=== PATIENT | male | born 1950 ===

== ENCOUNTER 2016-11-22 12:00 | Inpatient (IN) | payer MEDICARE, OTHER ==
[~2016-11-22] VITALS: Ht 177.8 cm; Wt 89.7 kg
--- NOTE | ~2016-11-22 | CON ---
PATIENT'S NAME: RAZIA HUERTAS [facility] AGE: 66 Y [address] ROOM: [place] [address] LOCATION: [facility] ADMIT DATE: 11/22/2016 Consultation DISCHARGE DATE: FAMILY PHYSICIAN: Jessica Pimentel MD ATTENDING PHYSICIAN: KRYSTINA STILES DATE OF CONSULTATION: 11/22/2016 REASON FOR CONSULT: Right foot ulcer. HISTORY OF PRESENT ILLNESS: This is a 66-year-old male currently admitted to [facility]. He was transferred from an outside facility for ongoing concern of a right foot ulcer and sepsis. The patient is also being seen by General Surgery for hydropic gallbladder and elevated liver function tests. The patient tells us that he has had this wound to his right foot since July. He reports that most recently he has had debridement by a acid recovery operator in [place] between November 17 and November 22. He was hospitalized in [place] during this time. The bone is known to be exposed, but history suggests a healthy-appearing and firm bone. His cultures have grown Enterococcus faecalis. The patient was transferred after having a history of fevers and leukocytosis. The patient is on vancomycin and gentamicin. The patient is a known longstanding insulin- dependent diabetic since the early . He denies any chewing tobacco or cigarette use. He does have a history of cigar use, but none currently. He denies any peripheral vascular history. He denies any venous insufficiency or history of DVT. The patient with known chronic kidney disease. He currently denies any chills. His temperature on admission is 99. He denies any chest pain, shortness of breath, dizziness, or palpitations. He denies any nausea, vomiting, diarrhea, abdominal pain, or constipation. PAST MEDICAL HISTORY: 1. Insulin-dependent type 2 diabetes. 2. Neuropathy. 3. Chronic kidney disease, stage 3. 4. Hyperlipidemia. 5. Gastroesophageal reflux disease. 6. Iron-deficiency anemia. 7. Essential hypertension. PAST SURGICAL HISTORY: Right foot sesamoid bone resection. FAMILY HISTORY: Brother with gallbladder removed and bypass surgery and extensive family PATIENT'S NAME: RAZIA HUERTAS [facility] AGE: 66 Y [address] ROOM: [place] [address] LOCATION: [facility] ADMIT DATE: 11/22/2016 Consultation DISCHARGE DATE: FAMILY PHYSICIAN: Jessica Pimentel MD ATTENDING PHYSICIAN: KRYSTINA STILES history of diabetes and coronary artery disease. SOCIAL HISTORY: The patient has history of cigar use. He denies any alcohol or illicit drug use. CURRENT MEDICATIONS: See medication reconciliation. ALLERGIES: NO KNOWN DRUG ALLERGIES. REVIEW OF SYSTEMS: All systems have been reviewed and negative aside from pertinent positives addressed in history of presenting illness. PHYSICAL EXAMINATION: VITAL SIGNS: Temperature is 99, heart rate 83, respiratory rate 16, and blood pressure 157/84. GENERAL: The patient is alert and oriented x3 in no acute distress. He is a good historian. SKIN: Overall, warm, pink, and dry. The patient with a full thickness open wound to the right foot medial plantar surface with bone exposed. The tissue appears pink and healthy with no areas of necrosis. The bone appears firm with no softness or breakdown. Wound with bloody drainage and no evidence of purulence. Some mild swelling and erythema to the surrounding foot. No odor or significant cellulitis. HEENT: Head: Normocephalic and atraumatic. Ears: Without drainage. Eyes: Sclerae white. Conjunctivae pink. Extraocular movements intact. Nose: Without drainage. Throat: Oral mucosa pink and moist. No exudate or erythema. NECK: Without adenopathy. No evidence of JVD. No carotid bruit. RESPIRATORY: Lung sounds are clear to auscultation bilaterally. Even and nonlabored. CARDIOVASCULAR: Regular rate and rhythm. No murmur or extra sounds. GASTROINTESTINAL: Bowel sounds active x4. Soft and nontender. No organomegaly. EXTREMITIES: The patient with bounding bilateral palpable pulses throughout radial, femoral, dorsalis pedis, and posterior tibialis. No cyanosis. Active range of motion throughout. No varicose veins. NEUROLOGICAL: No focal deficits. Equal strength 5/5 bilaterally. Decreased sensation to bilateral feet. DIAGNOSTICS: Outside wound cultures with Enterococcus faecalis. Outside MRI suggesting PATIENT'S NAME: RAZIA HUERTAS [facility] AGE: 66 Y [address] ROOM: [address] [address] LOCATION: [facility] ADMIT DATE: 11/22/2016 Consultation DISCHARGE DATE: FAMILY PHYSICIAN: Jessica Pimentel MD ATTENDING PHYSICIAN: KRYSTINA STILES possible osteomyelitis. Hematology: White blood cell count 11.1, hemoglobin 9.2, hematocrit 27.7, and platelets 499. Procalcitonin is 0.09. CRP 160. Hemoglobin A1c is 7.6. IMPRESSION AND PLAN: Diabetic foot ulcer. The patient with adequate pulses throughout. There is no significant evidence suggesting any vascular compromise. At this point in time, we would recommend primary doctor to consider an Orthopedic consultation for surgical intervention at the foot. The patient appears to have enough blood flow to heal any distal surgical intervention including debridement or amputation. Due to the exposure of bone, we believe the patient would benefit most by a form of distal amputation of the foot. The patient continues on Zosyn per hospitalist plan. May follow up with Vascular Surgery as needed or with any questions or concerns. Thanking for your consultation for allowing us to participate in the care of this patient. HUSEYIN ISAAC APRN FOR ASIA GUAMAN MD TO/garol /[id number] d: 11/23/16 0134 t: 11/30/16 1156, CONSULTATION REPORT
--- NOTE | ~2016-11-22 | DS ---
PATIENT'S NAME: RAZIA HUERTAS [facility] AGE: 66 Y [address] ROOM: [address] [place], [place] [address] LOCATION: [facility] ADMIT DATE: 11/22/2016 Discharge Summary DISCHARGE DATE: 11/28/2016 FAMILY PHYSICIAN: Jessica Pimentel MD ATTENDING PHYSICIAN: Jacinto Baker FINAL DIAGNOSES: 1. Right chronic foot wound with gangrene, status post right metatarsal amputation with gastrocnemius recession procedure. 2. Diabetes mellitus type 2, insulin using. 3. Diabetic neuropathy. 4. Essential hypertension. 5. Stage III chronic kidney disease. 6. Dyslipidemia. 7. Iron deficiency anemia. 8. Hydropic gallbladder. PROCEDURE: The patient had a transmetatarsal amputation of one through three on a gastrocnemius recession procedure and then also put PICC line. HISTORY OF PRESENT ILLNESS: For details of admission, please see the history and physical dictated by Dr. Jacinto Baker. In short, the patient was transferred from [place] where he presented with a surface ulcer. Tissue cultures that had been obtained there had grown enterococcus faecalis. He was on IV vancomycin and gentamicin. An MRI was done and it was suggestive of osteomyelitis. The patient was transferred here for further evaluation. LABORATORY DATA: On admission sodium 138, most prior to discharge 140. Potassium on admission 3.8, most prior to discharge 3.7. BUN on admission 18, discharge 14. Creatinine on admission was 1.1, got as high as 1.3 on the 8th, most prior to discharge 1.1. Hemoglobin A1c was 7.6, alkaline phosphatase on admission was 293, AST 23, ALT 44. C-reactive protein on admission was 11.7. White blood cell count on admission was 11.1, hemoglobin 9.2, hematocrit 27.7, and platelet count 499. Sedimentation rate was greater than 120. White blood cell count at discharge was 6.5. Hemoglobin most prior to discharge was 8.3. Platelet count on admission was 499, discharge 416. Procalcitonin on admission was 0.09. Wound culture here grew Enterococcus faecalis. X-RAY DATA: X-ray of the right foot on admission document amputation of first, second, third digits of the proximal metatarsals. HOSPITAL COURSE: The patient was accepted in transfer from [facility]. He was known that he would most likely need to have amputation and would have to have debridement if not amputation. Dr. Harley was consulted to see the patient. The patient had abnormal liver enzymes on admission and an PATIENT'S NAME: RAZIA HUERTAS [facility] AGE: 66 Y [address] ROOM: [id number] [place], [place] [address] LOCATION: [facility] ADMIT DATE: 11/22/2016 Discharge Summary DISCHARGE DATE: 11/28/2016 FAMILY PHYSICIAN: Jessica Pimentel MD ATTENDING PHYSICIAN: Jacinto Baker ultrasound done in [place] showed a hydropic gallbladder. Surgery was asked to see the patient in evaluation. There was also concern about his vascular status. Dr. Snyder did see the patient as well Dr. Snyder on his consultation and felt that the patient was okay to proceed for surgery and there were not any intervention required. General surgery felt that he was asymptomatic and his liver enzymes were trending downward and that any intervention on his gallbladder could be done as an outpatient. The patient had been started on IV antibiotics with Zosyn and Dr. Harley was asked to see the patient based on the MRI results. It was felt that he would need to have a partial amputation and gastrocnemius recession. The patient was taken to the OR on November 24. Postoperatively, he did great. Please see Dr. Harley' note for full details of the procedure. Postoperatively, we did not have any difficulty with pain control. He was restarted on Levemir and put on NovoLog based on his food intake. His hemoglobin A1c was discussed with him and it was stressed him that we did need to get better blood sugar control. The concern was that he was going to need IV antibiotics, so a PICC line was placed. Based upon recommendations from Infectious Disease, he was started on IV vancomycin. The patient was monitored over the weekend. The path returned on Monday morning. The margins were clear. The culture data was reviewed and based upon the culture data here and the culture data in [place] that showed enterococcus as well as coag negative Staphylococcus, the decision was made to treat the patient with amoxicillin 500 mg 3 times daily and minocycline 100 mg twice daily until the wounds have cleared adequately. It was felt that the patient because of his nonweightbearing status on his right foot would need to go to skilled arrangements that were made at the [facility]. DISCHARGE INSTRUCTIONS: The patient is discharged to [facility]. He is to see Dr. Harley in a week. He has a full code status. He is to have a diabetic diet. He is nonweightbearing on the left lower extremity until the incision heals. He is to have Accu-Cheks q.a.c. and h.s. and likely CBC and renal panel. Right dressing was Xeroform, 4 x 4 gauze, cast padding, and Jus wrap every 3 days. He did have a right basilic PICC line. This was discussed with Dr. Pimentel and it was felt that it was good idea to keep it in place. DISCHARGE MEDICATIONS: 1. Norvasc 5 mg daily. 2. Ascorbic acid 500 mg daily. 3. Amoxicillin 500 mg 3 times daily. 4. Vitamin B12 1000 mcg daily. 5. HydroDIURIL 25 mg daily. 6. Lovenox 40 mg subcu daily for DVT prophylaxis. 7. NovoLog mild sliding scale. 8. NovoLog 1 unit to 15 g consumed 3 times daily with meals. 9. Levemir 24 units at bedtime. PATIENT'S NAME: RAZIA HUERTAS [facility] AGE: 66 Y [address] ROOM: [place] [address] LOCATION: [facility] ADMIT DATE: 11/22/2016 Discharge Summary DISCHARGE DATE: 11/28/2016 FAMILY PHYSICIAN: Jessica Pimentel MD ATTENDING PHYSICIAN: Jacinto Baker 10. Claritin 10 mg daily. 11. Cozaar 100 mg daily. 12. Protonix 40 mg daily. 13. Zocor 20 mg daily. 14. Tylenol 650 mg every 6 hours as needed for pain and temp. 15. Dulcolax 10 mg as needed per rectum daily for constipation. 16. Soma 350 mg every 6 hours for muscle spasm. 17. Chloraseptic throat irritation one spray every 2 hours. 18. Dextrose 50% 25 mL for hypoglycemia. 19. Glucagon 1 mg subcu for hypoglycemia. 20. Glucose 16 g p.o. for hypoglycemia. 21. Percocet 5/325 1 every 2 hours as needed for pain. A script for 20 pills was sent. 22. Aspirin 81 mg daily. 23. Minocycline 100 mg twice daily. PROGNOSIS: Overall prognosis at discharge is good. SIOBHAN VO MD LAW/modl /[id number] CC: MD Jessica Christie MD d: t: 11/30/16925, DISCHARGE SUMMARY
--- NOTE | ~2016-11-22 | HP ---
PATIENT'S NAME: RAZIA HUERTAS [facility] AGE: 66 Y [address] ROOM: [address] [place], [place] [address] LOCATION: [facility] [place] ADMIT DATE: 11/22/2016 History & Physical DISCHARGE DATE: FAMILY PHYSICIAN: Jessica Pimentel MD ATTENDING PHYSICIAN: KRYSTINA STILES DATE OF SERVICE: 11/22/2016 CHIEF COMPLAINT: Diabetic foot ulcer, transferred from [facility]. HISTORY OF PRESENT ILLNESS: This is a very pleasant 66-year-old male with insulin-dependent diabetes, CKD, and hypertension, who presented on November 17 after noting a right plantar surface foot ulcer. Summary of outside admission was that the patient was initially febrile with an elevated leukocytosis qualifying for sepsis secondary to this right foot infection and prompting initiation of antibiotics with vancomycin and gentamicin. Subsequently, the patient underwent debridement with a border police at [place] on 3 separate occasions during his stay there from November 17 through November 22. MRI was performed which showed concern for osteomyelitis, however, verbal report from physician at outside hospital was that while undergoing debridement, bone appeared healthy and was firm. Cultures grew enterococcus faecalis, prompting transition to Zosyn monotherapy for antibiotic coverage and the patient has been afebrile since yesterday. [facility] was requested to transfer the patient here for further evaluation to include vascular surgery for possible toe amputation and further debridement. Incidentally, during patient's stay, he was found to have a CT scan showing a hydropic gallbladder and it was mentioned to the patient that he should have surgery to have his gallbladder removed. Upon time of transfer, ultrasound was pending and Dr. Murrieta had been contacted by outside physician for possible surgical intervention on this as well. The patient currently notes that he has had some low-grade temperatures, may be occasionally chilled, however, he denies other systemic symptoms of infection including no nausea, vomiting, chest pain, shortness of breath, abdominal pain, bowel or bladder concerns, leg swelling, or otherwise. He notes his right foot is not currently painful, though has had some discomfort in recent days. He has no other issues currently and feels well. PAST MEDICAL HISTORY: 1. Insulin-dependent diabetes type 2 complicated by neuropathy. 2. Chronic kidney disease stage III. 3. Hyperlipidemia. 4. GERD. 5. Iron deficiency anemia. 6. Essential hypertension. PATIENT'S NAME: RAZIA HUERTAS [facility] AGE: 66 Y [address] ROOM: [address] [place], [place] [address] LOCATION: [facility] [place] ADMIT DATE: 11/22/2016 History & Physical DISCHARGE DATE: FAMILY PHYSICIAN: Jessica Pimentel MD ATTENDING PHYSICIAN: KRYSTINA STILES SURGICAL HISTORY: Right foot sesamoid bone resection. FAMILY HISTORY: He has a twin brother who has had a bypass procedure and gallbladder removed already as well as extensive family history of diabetes and coronary disease. 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 He is a previous cigar smoker, though quit in September. He denies significant alcohol use. ALLERGIES: NO KNOWN DRUG ALLERGIES. MEDICATIONS: Currently being reconciled. Notable for Levemir 50 units at bedtime and short- acting insulin with meals t.i.d. REVIEW OF SYSTEMS: Complete review of systems performed and negative except as per above in HPI. PHYSICAL EXAMINATION: VITAL SIGNS: During transfer, temp 98.0, blood pressure 134/71 with a pulse of 82, respirations 18, sating 93% on room air. GENERAL: The patient is in no acute distress, lying comfortably in bed. HEENT: Head is normocephalic, atraumatic. Eyes; pupils equal, round, and reactive to light. Extraocular muscles intact. No scleral icterus. No conjunctival injection. ENT, dry mucous membranes. No nasal discharge. NECK: Supple. No lymphadenopathy. No thyromegaly. No JVD. CARDIOVASCULAR: Regular rate and rhythm. No murmurs, rubs, or gallops appreciated. 2+ pulses bilaterally including radial and dorsalis pedis. RESPIRATIONS: Clear to auscultation bilaterally with normal effort. Saturating well on room air. ABDOMEN: Soft, nontender, nondistended with normoactive bowel sounds. EXTREMITIES: Without appreciable edema. Right foot is wrapped without drainage. Underlying is a 6 cm approximately greatest dimension ulcer on the plantar surface of the foot. NEUROLOGIC: Alert and oriented x3. No focal deficits on exam. Strength is 5/5 bilaterally. Sensation intact to mid shins though diminished inferiorly bilaterally. PSYCH: The patient is of normal mood and affect. LABORATORY AND IMAGING DATA: PATIENT'S NAME: KIYA, RAZIA J [facility] AGE: 66 Y [address] ROOM: [address] [place] [address] LOCATION: [facility] [place] ADMIT DATE: 11/22/2016 History & Physical DISCHARGE DATE: FAMILY PHYSICIAN: Jessica Pimentel MD ATTENDING PHYSICIAN: KRYSTINA STILES Labs and imaging taken from most recent outside hospital records include a white count of 12.1, hemoglobin 9.1, platelets 555. Metabolic panel notable for BUN of 18, creatinine 1.2, which is apparently at baseline. LFTs notable for AST 30, ALT 48, alkaline phosphatase 286, bilirubin improved from 2.4 few days ago to currently 1.7. CRP is 160. Sedimentation rate is 94. Lactic acid 0.8. Ultrasound shows biliary sludge without gallbladder wall thickening or common bile duct dilation without stones and without choledocholithiasis. MRI foot shows osteomyelitis of the first MTP. Cultures from outside hospital of wound reportedly growing enterococcus faecalis. ASSESSMENT: 1. Diabetic foot ulcer. 2. Insulin-dependent diabetes type 2. 3. Hydropic gallbladder. 4. Iron deficiency anemia. 5. Chronic kidney disease. PLAN: We will admit to inpatient status. We will plan to continue Zosyn as the patient has been afebrile and this is a culture-tailored regimen. We will ask for vascular surgery evaluation regarding potential amputation versus further debridement of this foot wound given escalation of inflammatory markers and MRI concerning for osteomyelitis. We will also ask General Surgery to see the patient regarding concerns for gallbladder that were brought up to the patient at outside hospital and he would request to have his gallbladder removed. Currently, he is asymptomatic from this standpoint and does not appear to be septic, nor in any acute pain from foot or gallbladder. We will continue home insulin though we will reduce Levemir to half of home dose at 25 units this evening given anticipation for n.p.o. status after midnight. We will continue remainder of home medications for hypertension, iron-deficiency anemia, GERD, hyperlipidemia. The patient is a full code. I spent 25 minutes on day of admission reviewing outside records as well as in [id number] evaluation of the patient. MD Jenni DUVALDS/modl PATIENT'S NAME: RAZIA HUERTAS [facility] AGE: 66 Y [address] ROOM: [place] [address] LOCATION: [facility] [place] ADMIT DATE: 11/22/2016 History & Physical DISCHARGE DATE: FAMILY PHYSICIAN: Jessica Pimentel MD ATTENDING PHYSICIAN: KRYSTINA STILES /[id number] D: [id number] T: [id number] HISTORY & PHYSICAL
--- NOTE | ~2016-11-22 | CON ---
PATIENT'S NAME: RAZIA HUERTAS [facility] AGE: 66 Y [address] ROOM: [place] [address] LOCATION: [facility] ADMIT DATE: 11/22/2016 Consultation DISCHARGE DATE: FAMILY PHYSICIAN: Jessica Pimentel MD ATTENDING PHYSICIAN: KRYSTINA STILES CHIEF COMPLAINT: Right foot diabetic wound. HISTORY OF PRESENT ILLNESS: The patient is a pleasant 66-year-old male, who on November 04 underwent a right foot sesamoid resection and a sunset skin transposition by a surgeon down in [place], [place]. Postoperatively, the patient developed fever. When evaluated, he had elevated ESR, and was noted to have leukocytosis. The patient prior to this had been treated on oral Levaquin. The patient was admitted to the [facility] on November 17. Subsequently, the patient underwent two irrigation and debridements of the right foot for right foot cellulitis and abscess. Wound culture showed Enterococcus faecalis and Staphylococcus species from wound cultures there. An MRI was done at the [facility] that showed septic arthritis and osteomyelitis centered about the first metatarsophalangeal joint involving the proximal phalanx and metatarsal head, and a large adjacent ulcer measuring 6 x 3 cm with depth to the bone surface was noted per MRI. The patient was also found to have elevated liver enzymes and was found to have a gallbladder with sludge. The patient was transferred to [facility] on November 22, 2016 for higher level of care. In [place], the patient was being treated with vancomycin and gentamicin, he is currently on Zosyn IV. The patient, in [place], had some complaints of low-grade fever and chills. He denied any pain in his right foot. PAST MEDICAL HISTORY: Includes 1. Hypertension. 2. Diabetes mellitus, type 2 with a history of neuropathy. 3. Chronic kidney disease. 4. Hypercholesterolemia. 5. History of GI bleeds. PAST SURGICAL HISTORY: Positive for 1. Right foot surgeries as stated above. 2. History of colonoscopies. ALLERGIES: THE PATIENT HAS NO KNOWN DRUG ALLERGIES. PATIENT'S NAME: RAZIA HUERTAS [facility] AGE: 66 Y [address] ROOM: [address] [address] LOCATION: [facility] ADMIT DATE: 11/22/2016 Consultation DISCHARGE DATE: FAMILY PHYSICIAN: Jessica Pimentel MD ATTENDING PHYSICIAN: KRYSTINA STILES CURRENT MEDICATIONS: Include 1. Claritin 10 mg p.o. daily. 2. Cozaar 50 mg p.o. daily. 3. Heparin 5000 units subq t.i.d. 4. HydroDIURIL 25 mg p.o. daily. 5. Levemir 25 units subq at bedtime. 6. Norvasc 5 mg p.o. at bedtime. 7. NovoLog sliding scale. 8. Protonix 40 mg p.o. daily. 9. Vitamin B12, 1000 mcg p.o. daily. 10. Vitamin C 500 mg p.o. daily. 11. Zocor 10 mg p.o. at bedtime. 12. Zosyn 3.375 g q.8 hours. SOCIAL HISTORY: The patient is retired and is . He quit smoking in September this year. He denies any alcohol use or illegal drug use. FAMILY HISTORY: Positive for heart disease and cancer in his father. The patient's mother had a history of diabetes mellitus, type 2. The patient's brother had a history of coronary artery disease, chronic kidney disease. The patient's son has a history of diabetes mellitus, type 2. REVIEW OF SYSTEMS: A 10-point review of systems is negative other than stated in the HPI. PHYSICAL EXAMINATION: CONSTITUTIONAL: This is a pleasant 66-year-old gentleman, who is in no acute distress. He is alert and oriented. VITAL SIGNS: Blood pressure was 153/77, heart rate was 83, respirations was 16, and temperature was 98.1. SKIN: Warm, dry, and intact except there is a large open wound on the plantar surface of the patient's right foot that extends from the phalanx to the proximal metatarsal. There is exposure of tendon and bone noted. There was some blood-tinged drainage noted. The area is swollen. No abnormal warmth was noted. Some mild erythema. Otherwise, skin was warm, dry, and intact. HEENT: Head is atraumatic and normocephalic. Extraocular movements are intact. Mouth is moist. Oropharynx is clear. NECK: Supple. The trachea is midline. LUNGS: Respirations were even and unlabored. HEART: Regular rate and rhythm. ABDOMEN: Soft, nontender, and nondistended. GENITOURINARY: Deferred. PATIENT'S NAME: RAZIA HUERTAS [facility] AGE: 66 Y [address] ROOM: [id number] [place], [place] [address] LOCATION: [facility] ADMIT DATE: 11/22/2016 Consultation DISCHARGE DATE: FAMILY PHYSICIAN: Jessica Pimentel MD ATTENDING PHYSICIAN: KRYSTINA STILES MUSCULOSKELETAL: The patient's right knee had full range of motion. Cruciate and collateral ligaments were stable. Strength was 5/5. The patient's right ankle had range of motion of neutral to about 45 degrees of plantar flexion and strength was 5/5. The patient's right foot wound is as described above. Right lower extremity compartments were soft. NEUROLOGICAL: Cranial nerves II through XII are grossly intact. There was decreased sensation in the patient's bilateral feet secondary to neuropathy. VASCULAR: The patient had palpable right pedal pulses. Capillary refill in the right toes is approximately 2 seconds. DIAGNOSTIC IMAGING: MRI per Radiology report from [place] again showed impression: Septic arthritis and osteomyelitis centered around the first metatarsal phalangeal joint involving the proximal phalanx and metatarsal head. Large adjacent ulcer measuring 6 x 3 cm with depth to the bone surface. A right three-view foot x-ray per Radiology report from [place] showed subcutaneous air in distal phalanx as well as extending plantar aspect to the PIP joint. On the lateral view, abscess, cellulitis, or postoperative changes. Slight bony changes of uncertain clinical significance. Again, postoperative changes of osteomyelitis remain the differential consideration. LABORATORY DATA: Hemoglobin is 9.2, hematocrit is 27.1, WBCs are 11.1, and platelet count is 499. Sodium is 138, potassium is 3.8, chloride is 102, CO2 is 30, BUN is 18, creatinine is 1.1, and glucose is 142. CRP was 11.7. Procalcitonin was 0.09. ESR was greater than 120. IMPRESSION: Right first phalanx and metatarsal osteomyelitis. PLAN: The patient does need surgical intervention for amputation of at least infected area. The patient will be seen by Dr. Harley later today to determine what level of amputation needs to be done. The patient is currently nonweightbearing on the affected side and this should be continued. We will make the patient n.p.o. at midnight, and have his heparin held for plan to proceed to the OR tomorrow. He is to continue on the IV antibiotics at this time. Thank you for allowing us to participate in this nice gentleman's care. If we can be of further assistance in the future, please contact us. PATIENT'S NAME: RAZIA HUERTAS [facility] AGE: 66 Y [address] ROOM: [id number] [place] [id number] LOCATION: [facility] ADMIT DATE: 11/22/2016 Consultation DISCHARGE DATE: FAMILY PHYSICIAN: Jessica Pimentel MD ATTENDING PHYSICIAN: KRYSTINA STILES PA-C FOR MD LUIS MIGUEL AKHTAR/jose francisco /[id number] d: 11/23/167 t: 11/29/16 1255, CONSULTATION REPORT
--- NOTE | ~2016-11-22 | OR ---
PATIENT'S NAME: RAZIA ALVARENGA [facility] AGE: 66 Y [address] ROOM: [place] [address] LOCATION: [facility] ADMIT DATE: 11/22/2016 OR/Procedure Report DISCHARGE DATE: FAMILY PHYSICIAN: Jessica Pimentel MD ATTENDING PHYSICIAN: KRYSTINA STILES SURGEON: Shin Harley MD DADO OPERATOR: Hemanth Fournier PA-C. DATE OF PROCEDURE: 11/24/2016 PREOPERATIVE DIAGNOSES: 1. Right foot chronic wound with gangrene. 2. Gastrocnemius equinus/shortened Achilles tendon. 3. 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 POSTOPERATIVE DIAGNOSES: 1. Right foot chronic wound with gangrene. 2. Gastrocnemius equinus/shortened Achilles tendon. 3. 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 PROCEDURE: 1. Right transmetatarsal amputation of the foot. 2. Gastrocnemius recession procedure. 3. Use of intraoperative fluoroscopy, less than 1 hour. ANESTHESIA: General endotracheal anesthesia. FLUIDS: See anesthesia report. ESTIMATED BLOOD LOSS: Minimal. TOURNIQUET: Right proximal thigh 250 mmHg. SPECIMEN: Right foot cultures on amputated portion of the foot. COMPLICATIONS: None. DISPOSITION: Stable in PACU. COUNTS: All counts correct. INDICATIONS: Mr. Alvarenga is a pleasant 66-year-old gentleman who underwent the noted procedures above. The risks, benefits, and alternatives pursuing the surgical intervention was discussed with the patient in detail. He elected to proceed with surgery. Anesthesia was consulted for their perioperative evaluation of the patient. I marked the patient's right lower extremity PATIENT'S NAME: RAZIA ALVARENGA [facility] AGE: 66 Y [address] ROOM: [place] [address] LOCATION: [facility] ADMIT DATE: 11/22/2016 OR/Procedure Report DISCHARGE DATE: FAMILY PHYSICIAN: Jessica Pimentel MD ATTENDING PHYSICIAN: KRYSTINA STILES indicating the correct surgical site. DESCRIPTION OF PROCEDURE: The right lower extremity was prepped and draped in the sterile fashion. I turned my attention to the right leg. An Esmarch was used to exsanguinate the limb and tourniquet was inflated to 250 mmHg. I turned my attention to the medial aspect of the leg. I used a 15 blade knife to make an incision through skin and subcutaneous tissue down to the gastrocnemius aponeurosis. I performed a gastrocnemius recession procedure. The wound was then copiously irrigated and closed in layers. I then turned my attention to the foot. There was a large wound with exposed bone and first metatarsal. There was evidence of gangrene. I introduced intraoperative fluoroscopy to identify the site for amputation. I then used a 15 blade knife to perform my transmetatarsal amputation for full- thickness cuts through skin, subcutaneous tissue, muscle, fascia tendon down to bone. Once the soft tissue flap was created, I used an oscillating saw to perform the transmetatarsal amputations. The wound was then copiously irrigated with a normal sterile saline solution via pulsatile lavage. A final fluoroscopic image revealed evidence of a successful transmetatarsal amputation of the right foot. The amputation was closed in layers. Sterile dressings were placed in the form of Xeroform, followed by 4x4, ABDs, Kerlix, Webril, and Jus bandage. The tourniquet was let down. The patient was placed into a postop shoe. He was transferred to the operating table onto the stretcher and extubated. He was brought to the recovery room in stable condition. There were no intraoperative complications noted. Of note, my PA, Hemanth Fournier PA-C, played an integral role in the intraoperative care of this patient. This included preoperative positioning, intraoperative expert retraction, and closing and dressing functions. IMPRESSION: The patient is status post the noted procedure above. PLAN: The patient will be nonweightbearing on the right lower extremity. Postoperative pain control in the form of Percocet and IV morphine as needed for pain. A peripheral nerve block was placed by the Anesthesia team. The hospitalist continue to manage the patient's concomitant medical PATIENT'S NAME: RAZIA ALVARENGA [facility] AGE: 66 Y [address] ROOM: [id number] [place], [place] [address] LOCATION: [facility] ADMIT DATE: 11/22/2016 OR/Procedure Report DISCHARGE DATE: FAMILY PHYSICIAN: Jessica Pimentel MD ATTENDING PHYSICIAN: KRYSTINA STILES. Physical Therapy and Occupational Therapy will consult for early ambulation and prevention of deconditioning. The patient's sterile dressing will be changed at the bedside on postoperative day 2. Antibiotics will be continued empirically. We will follow up the intraoperative OR cultures. I will continue to follow the patient closely in the postoperative period. MD NAHEED AKHTAR/jose francisco /[id number] d: 11/24/169 t: 11/25/16 1055, OPERATIVE SUMMARY
--- NOTE | ~2016-11-22 | CON ---
PATIENT'S NAME: INDERJIT ALVARENGA [facility] AGE: 66 Y [address] ROOM: [address] [place], [place] [address] [place] [facility] [place] DATE: 11/22/2016 Consultation DISCHARGE DATE: FAMILY PHYSICIAN: Jessica Pimentel MD ATTENDING PHYSICIAN: KRYSTINA STILES DATE OF CONSULTATION: 11/22/2016 REASON FOR CONSULTATION: Abnormal liver function test with gallbladder sludge. HISTORY OF PRESENT ILLNESS: Inderjit Alvarenga is a 66-year-old male, who was transferred to [facility] under the care of the hospitalist from [place], [place]. The patient has a right diabetic foot ulcer with concerns for osteomyelitis. The patient was hospitalized in [place] for this and subsequently transferred for vascular intervention. During his hospitalization, his liver function test showed a total bilirubin of 2.4 on November 20. This improved to 1.7 on November 21. AST and ALT are normal. Alkaline phosphatase is mildly elevated. The patient had a CT scan of the abdomen and pelvis done that showed a hydropic gallbladder with sludge and/or stones. An ultrasound was then done that showed sludge in the dependent portion of the gallbladder. Common bile duct was normal at 5 mm. There was no gallbladder wall thickening or pericholecystic fluid seen. Due to these findings, the hospitalist consulted Dr. Sharma, for consideration of laparoscopic cholecystectomy. The patient denies any abdominal pain. Denies any nausea. He states that he has had some loose stools in the past after eating fatty foods, but this only last a short while. He rarely will vomit after eating greasy foods. Denies any history of jaundice. The patient denies having any abdominal operations. He has had multiple colonoscopies. It sounds like he has had a history of a GI bleed with reports of a red blood cell tagged study and a "camera" study in the past. PAST MEDICAL HISTORY: ALLERGIES: NONE. MEDICATIONS: Hydrochlorothiazide 25 mg p.o. daily, Protonix 40 mg p.o. daily, Levemir 50 units subcu at bedtime, Cozaar 50 mg p.o. daily, Norvasc 5 mg p.o. at bedtime, Claritin 10 mg p.o. q.a.m., Glucotrol-XL 5 mg p.o. b.i.d., Zocor 10 mg p.o. at bedtime, NovoLog insulin sliding scale, ascorbic acid 500 mg daily, vitamin PATIENT'S NAME: INDERJIT ALVARENGA [facility] AGE: 66 Y [address] ROOM: [address] [place], [place] [address] [place] [facility] [place] DATE: 11/22/2016 Consultation DISCHARGE DATE: FAMILY PHYSICIAN: Jessica Pimentel MD ATTENDING PHYSICIAN: KRYSTINA STILES B12 1000 mcg p.o. daily, and aspirin 81 mg p.o. daily. ILLNESSES: Include, diabetes, hypertension, hypercholesterolemia, history of GI bleed. OPERATIONS: Right foot and multiple colonoscopies. SOCIAL HISTORY: The patient is and is a nonsmoker. PHYSICAL EXAMINATION: VITAL SIGNS: Per nursing sheet. GENERAL: A 66-year-old male, who is alert and oriented, pleasant, cooperative, in no acute distress. EYES, EARS, NOSE, AND THROAT: Grossly normal. LUNGS: Clear. HEART: Regular. ABDOMEN: Active bowel sounds. Abdomen is soft and nontender. Negative Snyder's sign. EXTREMITIES: Right lower extremity has a dressing in place over the foot. LABORATORY DATA: Lab work today shows white blood cell count of 11.1, hemoglobin 9.2, hematocrit 27.7, platelets 499. Sodium 138, potassium 3.8, chloride 102, CO2 30, BUN 18, creatinine 1.1, glucose 142, total bilirubin 1.1, alkaline phosphatase 294, AST 23 and ALT 44. ASSESSMENT: A 66-year-old male with mild elevation of total bilirubin which has actually normalized today with evidence for gallbladder sludge on CT and ultrasound. The patient is asymptomatic. PLAN: Dr. Sharma, recommended continued observation for the time being. Recommended the patient followup as an outpatient with a general surgeon for consideration of an elective laparoscopic cholecystectomy once his other issues have been addressed. If the patient becomes more symptomatic then we may have to reconsider at this time. Dr. Sharma has evaluated the patient and is involved in assessment plan and is available for supervision. BATSHEVA DASILVA PA-C FOR KEMAR SHARMA MD PATIENT'S NAME: INDERJIT ALVARENGA [facility] AGE: 66 Y [address] ROOM: [place] [address] [place] [facility] [place] DATE: 11/22/2016 Consultation DISCHARGE DATE: FAMILY PHYSICIAN: Jessica Pimentel MD ATTENDING PHYSICIAN: KRYSTINA SITLES/jose francisco /[id number] d: 11/22/16 2103 t: 11/24/16 0959, CONSULTATION REPORT
[2016-11-22] MEDS ORDERED: LEVEMIR FL100 UNIT/1 SUB-Q (12:43)
[2016-11-22] MEDS ORDERED: PROTONIX40 MG PO (12:43)
[2016-11-22] MEDS ORDERED: HYDRODIURIL25 MG PO (12:43)
[2016-11-22] MEDS ORDERED: CLARITIN10 MG PO (12:44)
[2016-11-22] MEDS ORDERED: NORVASC5 MG PO (12:44)
[2016-11-22] MEDS ORDERED: COZAAR50 MG PO (12:44)
[2016-11-22] MEDS ORDERED: ZOCOR10 MG PO (12:45)
[2016-11-22] MEDS ORDERED: GLUCOTROL 5MG XL5 MG PO (12:45)
[2016-11-22] MEDS ORDERED: ASCORBIC ACID500 MG PO (12:46)
[2016-11-22] MEDS ORDERED: NOVOLOG100 UNIT/M SUB-Q (12:46)
[2016-11-22] MEDS ORDERED: ASPIRIN LO-DOSE81 MG PO (12:47)
[2016-11-22] MEDS ORDERED: VITAMIN B-121000 MCG PO (12:47)
--- NOTE | 2016-11-22 13:08 | NUR ---
Patient transferred to [facility] from [facility] with diabetic foot ulcer, possible gallbladder disease. Pt alert/oriented and lives in his own home with his spouse, Bharati. Pt has been a patient in [place] since last , 11/17 when he had an I&D of diabetic foot ulcer. Hx type 2 diabetes, htn. Pt normally is up independently at home but has been using a walker in [place] since surgery. Instructed patient on things to expect while he is here in the hospital: purposeful rounding, bedside reporting, fall prevention meausures in place, vte measures that will be utilized during his stay and importance of hand hygiene. The patient verbalized understanding of the above teaching. Awaiting admission orders. Charu MCLAUGHLIN
[2016-11-22 13:19] LABS: BASOPHIL % 0.2 %; EOSINOPHIL # 0.1 K/uL (0.0-0.5); EOSINOPHIL % 1.1 %; HEMATOCRIT 27.7 % (37.0-53.0); HEMOGLOBIN 9.2 g/dL (11.0-16.0); IMMATURE GRANULOCYTE # 0.2 K/uL (0.0-0.3); IMMATURE GRANULOCYTE % 1.6 %; LYMPHOCYTE # 1.5 K/uL (0.8-4.0); LYMPHOCYTE % 13.5 %; MCH 30.3 pg (27.0-34.0); MCHC 33.2 gm/dL (32.0-36.5); MCV 91.1 fl (83.0-98.0); MONOCYTE # 0.6 K/uL (0.0-1.0); MONOCYTE % 5.3 %; MPV 8.7 fl (9.4-12.4); NEUTROPHIL # (ANC) 8.7 K/uL (1.4-9.0); NEUTROPHIL % 78.3 %; NRBC % 0 /100WBC (0-0.00); PLATELET COUNT 499 K/uL (150-450); RBC 3.04 M/uL (3.50-5.50); RDW-CV 13.1 % (11.9-14.6); WBC 11.1 K/uL (4.0-11.0)
[2016-11-22 13:29] LABS: ALBUMIN 2.1 gm/dL (3.5-5.0); ANION GAP 9.8 (10.0-19.0); CALCIUM 8.5 mg/dL (8.5-10.5); CREATININE 1.1 mg/dL (0.6-1.3); POTASSIUM 3.8 mMol/L (3.7-5.1); TOTAL BILIRUBIN 1.1 mg/dL (0.0-1.5); TOTAL PROTEIN 7.3 g/dL (6.0-8.4)
--- NOTE | 2016-11-22 17:11 | NUR ---
Significant Event:Admitted from [facility] for possible delvin. saw & said no real trouble that it is causing at this time so not doing surgery.He said he could have it done sometime in [place] as an outpatient.Hx diabetes.On accuchecks.IV flds infusing thru Rt.forearm IV.Rt.foot has open area on bottom of foot which they have been treating in [place].Rt.foot is wrapped in kerlix and luna wrap.Has neuropathy in feet.No c/o pain.Is pleasant. Follow up:
--- NOTE | 2016-11-23 05:31 | NUR ---
Significant Event: Pt alert and oriented. Non weight bearing to right foot. Up with 1 assist, gait belt and walker, tolerates activity well. He will ask to bring in own walker. VSS, afebrile. Right foot dressing and luna wrap cl/dry/intact. Accuchecks AC/HS with no HS SSI given. Levemir 25 units given and pt wants to know from the doctor why he decreased this amount by half. Cont on IV Zozyn. Follow up:
--- NOTE | 2016-11-23 11:03 | NUR ---
Significant Event: Pt denies pain. Up with standby assist. Dressing to right foot d/i. Pt is a diabetic. Good CSM. VS stable. Follow up:
--- NOTE | 2016-11-23 11:45 | NUR ---
Introduced self/role to patient, lives in [place] with his Bharati. He reports being at the [facility] but never going to the swing bed, he was going to but they kept him acute one more day and then transported him here. If he needs IV abx or doctor thinks he needs to go to the swing bed, is fine with that. Denied any barriers at home. Added my name to his marker board, will follow.
--- NOTE | 2016-11-23 16:14 | NUR ---
Significant Event: Received from [place] @ 1912. PT is a/o. Cooperative with cares. Has voided in urinal, and has been up to BR with walker, gaitbelt and one assist. NWB R) foot. Dressing changed by Hemanth FREED. Dr Harley will be rounding and talking to patient about poss OR tomorrow for ampuation on R) foot, unsure how much will be done. Pt understands he will be NPO @ [facility]. Pt is getting ahold of his to come in am. Permit to be done after Dr Harley writes orders and done R/B. Denies need for pain meds. ACHS accuchecks. Follow up:
--- NOTE | 2016-11-24 03:20 | NUR ---
Significant Event: Alert/oriented x3. Voided in urinal, in bed for shift. NPO since midnight - will have right foot amputated later today, permit signed, checklist started - in chart. should be coming in this morning. NWB right foot. ABDIAZIZ Saxena, changed dressing yesterday. Dressing C/D/I. Numbness to right toes, full sensation to left foot. Pneumatic to left calf. No compaint of pain. Accuchecks AC, HS - was 180 at HS - 0 U Novolog per mild sliding scale, Levemir 18 U at HS. Has IV fluids in right posterior forearm, next Zosyn at 0500 this morning. Skin discoloration bilateral legs, scratches to top bilateral hands. Follow up:
--- NOTE | 2016-11-24 10:39 | NUR ---
student nurse provided patient cares from [phone]. gaby hamilton rn [facility] instructor.
--- NOTE | 2016-11-24 10:47 | NUR ---
student nurse provided patient cares from [phone]. gaby hamilton rn [facility] instructor.
--- NOTE | 2016-11-24 17:32 | NUR ---
Pt here from PACU at 1610. He had general anesthetic and popliteal block. Dressing luna wrap Rt ankle foot dry and intact. Denies pain. Pt has no sensation in exposed toes. They are warm, venancio well. Unable to get to pedal pulse to assess. Pt BS 125 and eating supper. Pt weaned off O2. He will be NWB Right leg. Not voided yet and hasn't been up yet. Dr Bond here and new insulin orders. He is on carb count insulin after meals. He is to get a PICC line. VS for you will be last 30 min at 1855.
--- NOTE | 2016-11-25 04:39 | NUR ---
Significant Event: Dressing has scant drainage. Dull to lower leg and numb to foot. NWB to R) foot. Voids without difficulty. Percocet at 0310. On room air. 1 assist. To get PICC line. Denies pain. Follow up:
[2016-11-25 05:54] LABS: BASOPHIL % 0.3 %; EOSINOPHIL # 0.1 K/uL (0.0-0.5); EOSINOPHIL % 1.1 %; HEMATOCRIT 24.7 % (37.0-53.0); IMMATURE GRANULOCYTE # 0.1 K/uL (0.0-0.3); IMMATURE GRANULOCYTE % 1.2 %; LYMPHOCYTE # 1.3 K/uL (0.8-4.0); LYMPHOCYTE % 11.8 %; MCH 30.7 pg (27.0-34.0); MCHC 32.4 gm/dL (32.0-36.5); MCV 94.6 fl (83.0-98.0); MONOCYTE # 0.7 K/uL (0.0-1.0); MONOCYTE % 6.4 %; MPV 8.7 fl (9.4-12.4); NEUTROPHIL # (ANC) 8.5 K/uL (1.4-9.0); NEUTROPHIL % 79.2 %; NRBC % 0 /100WBC (0-0.00); PLATELET COUNT 481 K/uL (150-450); RBC 2.61 M/uL (3.50-5.50); RDW-CV 13.4 % (11.9-14.6); WBC 10.7 K/uL (4.0-11.0)
--- NOTE | 2016-11-25 10:35 | NUR ---
Andrez Ruggiero asked if patient could go to swing over the weekend. Called Madie at [facility], would need to be Monday as Dr. Spence is on vacation. Updated Andrez. 1345 Spoke to patient about plans. He was eager to get back to [place]. 1430 Madie called. Patients son had called her and questioned why they can take on the weekend. Madie stated if all the arrangements could be made today they can consider. 1450 Madie called again. Son called her again. Asked me to call son. 1515 Called Lars #[phone]. Explained to him we are still awaiting cultures, recently made a IV drug change so aren't sure yet what patient will need to discharge with. So [place] can't make arrangement either. He voiced understanding, he stated this is not the message he got from his dad. His dad wants to be home. Will talk again Monday morning. Son can transport Monday but then has to go to [place]. 1530 Updated Andrez, he stated Dr. Bond for sure wanted to keep until. Called Madie to update.
--- NOTE | 2016-11-25 11:50 | NUR ---
Student nurse provided patient cares from 0630 to 1215. Torri Priest RN, [facility] Instructor
[2016-11-25 15:44] LABS: ALBUMIN 2.1 gm/dL (3.5-5.0); CALCIUM 7.9 mg/dL (8.5-10.5); CREATININE 1.3 mg/dL (0.6-1.3); PHOSPHORUS 3.2 mg/dL (2.5-4.9)
--- NOTE | 2016-11-26 01:18 | NUR ---
Significant Event: Cares from [phone]. VSS on room air. Denies pain. Drinking well, voiding adequate amounts. Dressing to R) foot remain C/D/I. Up in room, NWB R), with 1 asssist, walker and gait belt. PIV patent and saline locked. PICC to R) upper arm patent and infusing without complications. HS accucheck was 263 and 4 units Novolog given per SS. Cooperative with cares. Follow up:
[2016-11-26 04:55] LABS: CREATININE 1.2 mg/dL (0.6-1.3)
--- NOTE | 2016-11-26 05:19 | NUR ---
Significant Event: Assumed cares at 0200. Alert and oriented. Denies pain. States toes are numb. Able to visualize 2 toes, they are pale, warm to touch, cap refill <3 seconds. PICC to E, flushes well and has good blood return. NWB RLE. Had BM last night. Voiding per urinal. IVF running at 100 ml/hr. Follow up:
--- NOTE | 2016-11-26 11:08 | NUR ---
A - PT SCREENED D/T LOS. S/P R) FOOT AMPUTATION. HT: 70" WT: 198# BMI: 28.3 LABS: ACCUCHECK WNL->200, GLU 147, ALB 2.1, CRP 11.7, HGB/HCT 8.0/24.7 MEDS: VANCO, LEVEMIR, CARB COUNT INS, REGLAN, SSI, PROTONIX, HYDRODIURIL, VIT B12, IVF, BOWEL DIET: DIABETIC. INTAKE: 50-100% EST NEEDS: 7139-1313 KCAL (25-30 KCAL/KG), 112-135 G PRO (1.25-1.5 G/KG), 2690 ML FLUID (30 ML/KG) D - INCREASED PROTEIN NEEDS R/T HEALING AEB R) FOOT AMPUTATION I - GOAL FOR INTAKE TO REMAIN 50-100% FOR DURATION OF STAY. WILL ADD GLUCERNA DAILY TO INC NUTRIENT INTAKE FOR HEALING. M/E - WILL MONITOR INTAKE, HEALING AND F/U IN 3-5 DAYS.
--- NOTE | 2016-11-26 17:20 | NUR ---
Significant Event: PT is a/o, cooperative with cares. Has been up in chair, amb to BR with walker, gaitbelt and 1 assist. IV now SL to R) upper arm PICC. To still get vanco IV. Denies c/o pain. Acewrap c/d/i R) foot. Numbness 2 toes R) foot. ACHS Accuchecks - sliding scale & carb count. Follow up:
--- NOTE | 2016-11-27 03:40 | NUR ---
Significant Event: Dressing has scant drainage at the toes. Patient states that half of the foot is numb to the toes. On room air. 1 assist with transfers. Refused pain medication. Denies pain. Accu check. PICC with good blood return. Follow up:
[2016-11-27 04:56] LABS: ANION GAP 9.7 (10.0-19.0); CALCIUM 8.1 mg/dL (8.5-10.5); MAGNESIUM 2.2 mg/dL (1.8-2.6); PHOSPHORUS 2.9 mg/dL (2.5-4.9); POTASSIUM 3.7 mMol/L (3.7-5.1)
[2016-11-27 04:57] LABS: ALBUMIN 1.9 gm/dL (3.5-5.0); BASOPHIL % 0.2 %; EOSINOPHIL # 0.1 K/uL (0.0-0.5); EOSINOPHIL % 1.8 %; HEMATOCRIT 21.8 % (37.0-53.0); IMMATURE GRANULOCYTE # 0.1 K/uL (0.0-0.3); IMMATURE GRANULOCYTE % 1.2 %; LYMPHOCYTE # 1.3 K/uL (0.8-4.0); LYMPHOCYTE % 19.5 %; MCH 30.5 pg (27.0-34.0); MCHC 32.6 gm/dL (32.0-36.5); MCV 93.6 fl (83.0-98.0); MONOCYTE # 0.5 K/uL (0.0-1.0); MONOCYTE % 7.8 %; MPV 8.6 fl (9.4-12.4); NEUTROPHIL # (ANC) 4.5 K/uL (1.4-9.0); NEUTROPHIL % 69.5 %; NRBC % 0 /100WBC (0-0.00); PLATELET COUNT 416 K/uL (150-450); RBC 2.33 M/uL (3.50-5.50); RDW-CV 13.8 % (11.9-14.6); WBC 6.5 K/uL (4.0-11.0)
[2016-11-27 04:58] LABS: HEMOGLOBIN 7.1 g/dL (11.0-16.0)
[2016-11-27 16:21] LABS: HEMATOCRIT 25.5 % (37.0-53.0); HEMOGLOBIN 8.3 g/dL (11.0-16.0)
--- NOTE | 2016-11-27 16:53 | NUR ---
Pt alert, oriented. Has denied pain. Up recliner most of shift. Up to bathroom for shower and amb in [place] with walker. Is one standby assist. NWB on Rt leg. Dressing dry and intact lower leg/foot. Unable to feel when toes touched. Moves them slightly. Sensation starts and ankle and middle bottom of foot. PICC line intact. Pt on carb count. BS so far 157 and 165. Hb this morning 7.1 Repeated this afternoon was 8.3. Pt has voided large amt and good PT intake. [facility] [place] [facility] Bond. IS use hrly.
--- NOTE | 2016-11-28 03:37 | NUR ---
Significant Event: Dressing has scant drainage to toe area. Slightly moves foot and slightly wiggles toes. Patient states that half of his foot to his toes are numb. Accu check. NWB R) foot. Had a bowel movement. On room air. 1 assist with transfers. Denies pain. Plan to dismiss to [facility] today. PICC with good blood return. Follow up:
[2016-11-28 04:43] LABS: CREATININE 1.1 mg/dL (0.6-1.3)
--- NOTE | 2016-11-28 08:00 | NUR ---
Faxed updates to [facility]. 0900 Spoke to Madie at [facility]. Doctor call already done per Dr. Bond and abx is now oral. will be here around noon then will discharge. Called son to update, he is coming with mom. [phone] Faxed orders and meds to [facility]. Nurse number on the chart.
--- NOTE | 2016-11-28 11:26 | NUR ---
AOx3. VSS. CSM WNL. AC&HS accuchecks. BS-[id number] at 1100 with no insulin given. Dressing to R) foot was changed this morning by the P.A. PICC in [place] flushes well with good blood return. Flu shot given in R) upper arm this morning. Up with 1 assist with walker. NWB to R) foot.
== END 2016-11-28 12:15 | disposition swing bed (61) | DRG 617 ==
LOC: G3N 12:19 → GMSU 12:19 → G3N 11-23 11:19
PROVIDERS: Internal Medicine; Orthopaedic Surgery Adult Reconstructive Orthopaedic Surgery; ADMIT Internal Medicine
PROC: 0L8N3ZZ Division of Right Lower Leg Tendon, Percutaneous Approach (ICD-10-PCS; principal; 2016-11-24)
PROC: 0Y6M0Z0 Detachment at Right Foot, Complete, Open Approach (ICD-10-PCS; principal; 2016-11-24)
DX: E11.621 Type 2 diabetes mellitus with foot ulcer (principal); D62 Acute posthemorrhagic anemia; K82.1 Hydrops of gallbladder; I96 Gangrene, not elsewhere classified; M86.371 Chronic multifocal osteomyelitis, right ankle and foot; N18.3 Chronic kidney disease, stage 3 (moderate); D50.9 Iron deficiency anemia, unspecified; E11.42 Type 2 diabetes mellitus with diabetic polyneuropathy; I12.9 Hypertensive chronic kidney disease with stage 1 through stage 4 chronic kidney disease, or unspecified chronic kidney disease; K21.9 Gastro-esophageal reflux disease without esophagitis
CPT/HCPCS: C1751; G0008; J1644; J1650; J2250; J2543; J3370; J7030; J7040; J7050

== ENCOUNTER → 2016-11-22 | Outpatient (CLI) | payer MEDICARE, OTHER ==
[~2016-11-22] MED LIST: ASCORBIC ACID500 MG PO; ASPIRIN LO-DOSE81 MG PO; CLARITIN10 MG PO; COZAAR50 MG PO; GLUCOTROL 5MG XL5 MG PO; HYDRODIURIL25 MG PO; LEVEMIR FL100 UNIT/1 SUB-Q; NORVASC5 MG PO; NOVOLOG100 UNIT/M SUB-Q; PROTONIX40 MG PO; VITAMIN B-121000 MCG PO; ZOCOR10 MG PO
== END | disposition disaster alternative care site (69) ==
LOC: GAMB 10:10
DX: E11.649 Type 2 diabetes mellitus with hypoglycemia without coma (principal); E11.621 Type 2 diabetes mellitus with foot ulcer; L97.519 Non-pressure chronic ulcer of other part of right foot with unspecified severity; R94.5 Abnormal results of liver function studies; I12.9 Hypertensive chronic kidney disease with stage 1 through stage 4 chronic kidney disease, or unspecified chronic kidney disease; E11.22 Type 2 diabetes mellitus with diabetic chronic kidney disease; N18.3 Chronic kidney disease, stage 3 (moderate); E11.40 Type 2 diabetes mellitus with diabetic neuropathy, unspecified; Z79.4 Long term (current) use of insulin; Z95.9 Presence of cardiac and vascular implant and graft, unspecified; Z79.82 Long term (current) use of aspirin
CPT/HCPCS: A0425; A0428